=== PATIENT | female | born 1950 | race Caucasian/White ===

== ENCOUNTER 2017-12-18 08:01 | Observation (INO) | payer MEDICARE, OTHER ==
[~2017-12-18] VITALS: Ht 165.1 cm; Wt 74.8 kg
[2017-12-18] VITALS (10 sets, daily range): BP systolic 124–149; BP diastolic 7–82
[~2017-12-18 08:01] MED LIST: EZET10TA5 PO; HYDR-3583 PO
[2017-12-18] MEDS ORDERED: ASPIRIN 81 MG CHEW (CHILDREN'S ASA) ONE (08:11)
[2017-12-18] MEDS ORDERED: NITROGLYCERIN 0.4 MG SL TABS BTL 25'S SL ONE (08:11)
[2017-12-18] MEDS ORDERED: NITROGLYCERIN 0.4 MG SL TABS BTL 25'S SL PRN ×2 (08:15→12:45)
[2017-12-18] MEDS ORDERED: ASPIRIN 81 MG CHEW (CHILDREN'S ASA) PO ONE (08:15)
--- NOTE | 2017-12-18 08:18 | ED Chest Pain ---
General Chief Complaint: Chest Pain Stated Complaint: CP,ARM PAIN, HAND NUMB Source: patient Exam Limitations: no limitations History of Present Illness Date Seen by Provider: Dec 18, 2017 Time Seen by Provider: 08:00 Initial Comments Patient presents to the ER by private conveyance with a chief complaint that she 's been having some right-sided chest pain and shoulder pain that she describes as sharp, intermittent and starting in her anterior right shoulder and radiating to the back of her shoulder running up her neck and right ear as well as down her shoulder arm all the way to her hand. This is been going on for the past several days but only lasts for less than an hour. She has not seen anybody for it yet. This morning she took 2 Tylenol about 2 AM but that did not help much with it. She began to experience numbness in her right hand and that really got her worried. She has no shortness of breath, nausea, chills, sweats or history of heart disease. She has no thyroid problems and she just recently started some medicine for her blood pressure. She has not had a coronary risk stratification workup yet. No history of smoking tobacco. She drinks wine a couple times a week. Allergies and Home Medications Allergies Coded Allergies: NKANo Known Allergies (Verified Allergy, Unknown, 04/13/06) Home Medications Atorvastatin Calcium 40 Mg Tablet, 40 MG PO DAILY, (Reported) Ezetimibe 10 Mg Tablet, 10 MG PO HS, (Reported) Hydrocodone Bit/Acetaminophen 1 Tab Tab, 1-2 EA PO Q4HR PRN, (Reported) Lisinopril/Hydrochlorothiazide 1 Each Tablet, 1 EACH PO DAILY, (Reported) Review of Systems Constitutional: No chills, No diaphoresis EENTM: No Blurred Vision, No Double Vision Respiratory: Denies Cough, Denies Shortness of Air Cardiovascular: See HPI, Chest Pain, Denies Irregular Heart Rate, Denies Lightheadedness, Denies Palpitations, Denies Syncope Gastrointestinal: Denies Abdomen Distended, Denies Abdominal Pain, Denies Constipated, Denies Diarrhea, Denies Nausea, Denies Vomiting Genitourinary: Denies Burning, Denies Discharge Musculoskeletal: No back pain, No joint pain Skin: No pruritus, No rash Psychiatric/Neurological: Denies Headache, Numbness, Paresthesia Past Pznccsc-Bmpndc-Vpzbqz Hx Patient Social History Alcohol Use: Occasionally Uses Alcohol Beverage of Choice: Wine (a few times a week) Recreational Drug Use: No Smoking Status: Never a Smoker Recent Foreign Travel: No Contact w/Someone Who Travel: No Reproductive System Hx Reproductive Disorders: No Physical Exam Vital Signs Vital Signs - First Documented 12/18/17 12/18/17 08:03 08:06 Temp 96.0 Pulse 71 Resp 20 B/P (MAP) 149/77 (101) Pulse Ox 100 O2 Delivery Nasal Cannula O2 Flow Rate 2.00 Capillary Refill : General Appearance: No Apparent Distress, WD/WN, Anxious HEENT: PERRL/EOMI, TMs Normal, Normal ENT Inspection, Pharynx Normal Neck: Full Range of Motion, Normal Inspection, Supple, Tender Lateral (right side about C2-C3 palpation re-creates the sharp pain into her shoulder and right arm as well as the paresthesias), No Thyromegaly Respiratory: Chest Non Tender, Lungs Clear, Normal Breath Sounds, No Accessory Muscle Use, No Respiratory Distress Cardiovascular: Regular Rate, Rhythm, No Edema, No Gallop, No JVD, No Murmur, Normal Peripheral Pulses Gastrointestinal: Normal Bowel Sounds, No Organomegaly, Non Tender, Soft Extremity: Normal Capillary Refill, Normal Inspection, No Pedal Edema, Other ( tenderness to palpation over her ulnar nerve that re-create some of the presenting pain radiating back up in her arm and shoulder as well as down her hand.) Neurologic/Psychiatric: Alert, Oriented x3, No Motor/Sensory Deficits Skin: Normal Color, Warm/Dry Progress/Results/Core Measures Results/Orders Lab Results Laboratory Tests Test 12/18/17 08:10 12/18/17 10:07 Range/Units White Blood Count 7.3 4.3-11.0 10^3/uL Red Blood Count 4.86 4.35-5.85 10^6/uL Hemoglobin 14.3 11.5-16.0 G/DL Hematocrit 42 35-52 % Mean Corpuscular Volume 87 80-99 FL Mean Corpuscular Hemoglobin 29 25-34 PG Mean Corpuscular Hemoglobin Concent 34 32-36 G/DL Red Cell Distribution Width 13.2 10.0-14.5 % Platelet Count 284 130-400 10^3/uL Mean Platelet Volume 10.5 H 7.4-10.4 FL Neutrophils (%) (Auto) 52 42-75 % Lymphocytes (%) (Auto) 37 12-44 % Monocytes (%) (Auto) 9 0-12 % Eosinophils (%) (Auto) 2 0-10 % Basophils (%) (Auto) 0 0-10 % Neutrophils # (Auto) 3.7 1.8-7.8 X 10^3 Lymphocytes # (Auto) 2.7 1.0-4.0 X 10^3 Monocytes # (Auto) 0.7 0.0-1.0 X 10^3 Eosinophils # (Auto) 0.2 0.0-0.3 10^3/uL Basophils # (Auto) 0.0 0.0-0.1 10^3/uL Prothrombin Time 12.5 12.2-14.7 SEC INR Comment 0.9 0.8-1.4 Activated Partial Thromboplast Time 28 24-35 SEC Sodium Level 141 135-145 MMOL/L Potassium Level 3.7 3.6-5.0 MMOL/L Chloride Level 105 98-107 MMOL/L Carbon Dioxide Level 23 21-32 MMOL/L Anion Gap 13 5-14 MMOL/L Blood Urea Nitrogen 26 H 7-18 MG/DL Creatinine 0.80 0.60-1.30 MG/DL Estimat Glomerular Filtration Rate > 60 BUN/Creatinine Ratio 33 Glucose Level 101 70-105 MG/DL Calcium Level 9.6 8.5-10.1 MG/DL Magnesium Level 2.2 1.8-2.4 MG/DL Total Bilirubin 0.7 0.1-1.0 MG/DL Aspartate Amino Transf (AST/SGOT) 19 5-34 U/L Alanine Aminotransferase (ALT/SGPT) 24 0-55 U/L Alkaline Phosphatase 82 40-136 U/L Myoglobin 45.5 10.0-92.0 NG/ML Troponin I < 0.30 < 0.30 <0.30 NG/ML Total Protein 7.6 6.4-8.2 GM/DL Albumin 4.2 3.2-4.5 GM/DL My Orders Orders - TOM SEVILLA Cbc With Automated Diff (12/18/17 08:13) Magnesium (12/18/17 08:13) Chest 1 View, Ap/Pa Only (12/18/17 08:13) Ekg Tracing (12/18/17 08:13) Cardiac Profile 1 (12/18/17 08:13) Comprehensive Metabolic Panel (12/18/17 08:13) Myoglobin Serum (12/18/17 08:13) Protime With Inr (12/18/17 08:13) Partial Thromboplastin Time (12/18/17 08:13) O2 (12/18/17 08:13) Monitor-Rhythm Ecg Trace Only (12/18/17 08:13) Lipid Panel (12/19/17 06:00) Aspirin Chewable Tablet (Baby Aspirin Ch (12/18/17 08:15) Nitroglycerin 0.4 Mg Btl 25's (Nitrostat (12/18/17 08:15) Saline Lock/Iv-Start (12/18/17 08:13) Nitroglycerin 0.4 Mg Btl 25's (Nitrostat (12/18/17 08:11) Aspirin Chewable Tablet (Baby Aspirin Ch (12/18/17 08:11) Morphine Injection (Morphine Injection (12/18/17 08:30) Ondansetron Injection (Zofran Injectio (12/18/17 09:00) Ondansetron Injection (Zofran Injectio (12/18/17 08:47) Ondansetron Injection (Zofran Injectio (12/18/17 09:45) Lactated Ringers (Lr 1000 Ml Iv Solution (12/18/17 09:45) Ekg Tracing (12/18/17 10:00) Troponin I (12/18/17 10:01) Promethazine Injection (Phenergan Injec (12/18/17 10:45) Promethazine Injection (Phenergan Injec (12/18/17 10:37) Medications Given in ED Current Medications Medications Dose Ordered Sig/Cyril Route Start Time Stop Time Status Last Admin Dose Admin Aspirin 324 mg ONCE ONCE PO 12/18/17 08:15 12/18/17 08:16 DC 12/18/17 08:16 324 MG Morphine Sulfate 4 mg ONCE ONCE IVP 12/18/17 08:30 12/18/17 08:32 DC 12/18/17 08:40 4 MG Nitroglycerin 0.4 mg UD PRN SL 12/18/17 08:15 12/18/17 08:17 0.4 MG Ondansetron HCl 4 mg ONCE ONCE IVP 12/18/17 09:00 12/18/17 09:01 DC 12/18/17 08:53 4 MG Ondansetron HCl 4 mg ONCE ONCE IVP 12/18/17 09:45 12/18/17 09:46 DC 12/18/17 10:12 4 MG Promethazine HCl 25 mg ONCE ONCE IVP 12/18/17 10:45 12/18/17 10:46 DC 12/18/17 10:46 25 MG Vital Signs/I&O Vital Sign - Last 12Hours 12/18/17 12/18/17 12/18/17 12/18/17 08:03 08:05 08:06 08:40 Temp 96.0 96.0 Pulse 71 Resp 20 B/P (MAP) 149/77 (101) Pulse Ox 100 100 O2 Delivery Nasal Cannula Nasal Cannula Nasal Cannula O2 Flow Rate 2.00 2.00 2.00 Progress Note : Time: 08:27 Progress Note Pain appears to be a radiculopathy however it would be a short sighted to not rule out an acute coronary origin. Initial EKG is unremarkable. If she is not responding to nitroglycerin we may try morphine. If we can rule out acute coronary issues then she may be amenable to NSAIDs or steroids. However it would likely benefit her to do a cardiac risk stratification outpatient before she launches into heavy course of NSAIDs. The morphine may also benefit her in terms anxiolysis. ECG Initial ECG Impression Date: Dec 18, 2017 Initial ECG Impression Time: 08:05 Initial ECG Rate: 83 Initial ECG Rhythm: Normal Sinus Initial ECG Intervals: Normal Initial ECG Impression: Normal, Nonspecific Changes Initial ECG Comparisson: No Previous ECG Available Comment No significant T-wave elevation or depression. EKG : EKG Time: 10:03 Rate: 60 Rhythm: Normal Sinus Intervals: Normal ECG Comparisson: Unchanged ECG Impression: Nonspecific Changes Comment Subtle anterior lateral flattening and half box depression of the ST segment. Discussed with cardiology. Diagnostic Imaging Diagonstic Imaging: Xray Plain Films/CT/US/NM/MRI: chest (1v) Comments [facility] [place], [place] NAME: BASIL LAURA [facility] REC#: [id number] PT STATUS: REG ER : 1950 PHYSICIAN: TOM SEVILLA MD ADMIT DATE: 12/18/17/ER Draft Date of Exam:12/18/17 CHEST 1 VIEW, AP/PA ONLY Clinical indication: Patient with chest pain, arm pain, hand numbness. Exam: Portable chest x-ray upright view. Comparison: None. Findings: There is a benign appearing small calcification overlying the periphery of the left midlung field which may be pleural-based, extrathoracic, or representing a calcified granuloma. Otherwise, lungs are clear. There is no pleural effusion or pneumothorax. Pulmonary vasculature and cardiac silhouettes within normal limits. There are small spurs involving the thoracic spine. There is mild left curvature of the lumbar spine. There are multiple surgical clips overlying the left axillary region. Impression: There is no radiographic evidence of acute cardiopulmonary process. Dictated on workstation # [id number] Dict: 12/18/17 0837 Trans: 12/18/17 0843 EARNESTINE [id number] Interpreted by: CHACHA ROUSSEAU MD Electronically signed by: Reviewed: Reviewed by Me Consults Consults : Consulting Physician: Shanta ESPAÑA MD Consults Notes Discussed the case lab imaging EKG findings and concern for probable radiculopathy. He says he will come to the ER since he's in the Hospital see the patient and if he agrees with plan he'll get her set up for outpatient follow-up. After Dr. España saw the patient and EKG he feels there is some subtle anterior lateral findings the flat didn't lead 1 although they are less than a box in amplitude. He would like to offer the patient to do an observation stay and stress test today versus outpatient follow-up the next day or 2 stress test. The patient has preferred to do the stress test today and if the repeat EKG and troponin are normal then he would like the primary care physician to admit the patient to care for the possible radiculopathy and he will do the stress test this afternoon at 1. Departure Communication (Admissions) Time/Spoke to Admitting Phy: 11:02 Communication Discussed the case lab imaging x-ray EKG and findings with Dr. Ramírez. Discussed the likelihood of a cervical radiculopathy given the clinical history and exam. We discussed that the plan was to do a stress test due to the subtle EKG findings and possible discharge later today or tomorrow morning. Impression Impression: Primary Impression: Chest pain Qualified Codes: R07.9 - Chest pain, unspecified Additional Impression: Cervical radiculopathy, acute Disposition: ADMITTED INPATIENT Condition: Stable Admissions Decision to Admit Reason: Admit from ER (General) Decision to Admit/Date: Dec 18, 2017 Time/Decision to Admit Time: 11:02 Departure-Patient Inst. Referrals: LAVELLE JUSTIN MD (PCP/Family) Primary Care Physician Copy Copies To 1: Shanta ESPAÑA MD; LAVELLE JUSTIN MD, TITUS J Dec 18, 2017 08:18
[2017-12-18 08:19] LABS: BASOPHILS % (AUTO) 0 % (0-10); EOSINOPHILS # (AUTO) 0.2 10^3/uL (0.0-0.3); EOSINOPHILS % (AUTO) 2 % (0-10); HEMATOCRIT 42 % (35-52); HEMOGLOBIN 14.3 G/DL (11.5-16.0); LYMPHOCYTES # (AUTO) 2.7 X 10^3 (1.0-4.0); LYMPHOCYTES % (AUTO) 37 % (12-44); MEAN CORPUSCULAR HEMOGLOBIN 29 PG (25-34); MEAN CORPUSCULAR HGB CONC 34 G/DL (32-36); MEAN CORPUSCULAR VOLUME 87 FL (80-99); MEAN PLATELET VOLUME 10.5 FL (7.4-10.4); MONOCYTES # (AUTO) 0.7 X 10^3 (0.0-1.0); MONOCYTES % (AUTO) 9 % (0-12); NEUTROPHILS # (AUTO) 3.7 X 10^3 (1.8-7.8); NEUTROPHILS % (AUTO) 52 % (42-75); PLATELET COUNT 284 10^3/uL (130-400); RED BLOOD COUNT 4.86 10^6/uL (4.35-5.85); RED CELL DISTRIBUTION WIDTH 13.2 % (10.0-14.5); WHITE BLOOD COUNT 7.3 10^3/uL (4.3-11.0)
[2017-12-18] MEDS ORDERED: morphine INJ 10 MG/ML 1ML (SYR OR VIAL) IVP ONE (08:30)
[2017-12-18 08:31] LABS: INR 0.9 (0.8-1.4); PROTHROMBIN TIME PATIENT 12.5 SEC (12.2-14.7)
[2017-12-18 08:42] LABS: ALANINE AMINOTRANSFERASE 24 U/L (0-55); ALBUMIN 4.2 GM/DL (3.2-4.5); ALKALINE PHOSPHATASE 82 U/L (40-136); BILIRUBIN,TOTAL 0.7 MG/DL (0.1-1.0); BUN/CREATININE RATIO 33; CALCIUM 9.6 MG/DL (8.5-10.1); CARBON DIOXIDE 23 MMOL/L (21-32); CHLORIDE 105 MMOL/L (98-107); GFR ESTIMATED > 60; GLUCOSE 101 MG/DL (70-105); MAGNESIUM 2.2 MG/DL (1.8-2.4); POTASSIUM 3.7 MMOL/L (3.6-5.0); SODIUM 141 MMOL/L (135-145); TOTAL PROTEIN 7.6 GM/DL (6.4-8.2)
--- NOTE | 2017-12-18 08:43 | Diagnostic Imaging Report ---
Clinical indication: Patient with chest pain, arm pain, hand numbness. Exam: Portable chest x-ray upright view. Comparison: None. Findings: There is a benign appearing small calcification overlying the periphery of the left midlung field which may be pleural-based, extrathoracic, or representing a calcified granuloma. Otherwise, lungs are clear. There is no pleural effusion or pneumothorax. Pulmonary vasculature and cardiac silhouettes within normal limits. There are small spurs involving the thoracic spine. There is mild left curvature of the lumbar spine. There are multiple surgical clips overlying the left axillary region. Impression: There is no radiographic evidence of acute cardiopulmonary process. Dictated by: Dictated on workstation # [id number]
[2017-12-18] MEDS ORDERED: LISI1TAB6 PO (08:44)
[2017-12-18] MEDS ORDERED: ATOR40TA70 PO (08:44)
[2017-12-18] MEDS ORDERED: ONDANSETRON 4 MG/2 ML (SDV) Z0FRAN ONE (08:47)
[2017-12-18 08:48] LABS: MYOGLOBIN SERUM 45.5 NG/ML (10.0-92.0)
[2017-12-18] MEDS ORDERED: ONDANSETRON 4 MG/2 ML (SDV) Z0FRAN IVP ONE ×2 (09:00→09:45)
[2017-12-18] MEDS: LACTATED RINGERS 1,000 ML IV SCH ×3 (10:09→12:20)
[2017-12-18] MEDS ORDERED: PROMETHAZINE INJ 25 MG/ML (PHENERGAN) AMP ONE (10:37)
[2017-12-18] MEDS ORDERED: PROMETHAZINE INJ 25 MG/ML (PHENERGAN) AMP IVP ONE (10:45)
[2017-12-18] MEDS ORDERED: fentaNYL INJECTION 100 MCG/2 ML AMP IV PRN (12:45)
[2017-12-18] MEDS ORDERED: ONDANSETRON 4 MG/2 ML (SDV) Z0FRAN IV PRN (12:45)
[2017-12-18] MEDS ORDERED: CATHETER FLUSH 10 ML SYR IV PRN (12:45)
[2017-12-18] MEDS: 1/2 NS W/KCL 20 MEQ/L 1,000 ML IV SCH ×2 (12:47→17:05)
[2017-12-18] MEDS ORDERED: REGADENOSON 0.4 MG/5 ML SYR (LEXISCAN) IV ONE ×2 (13:21→13:45)
--- NOTE | 2017-12-18 13:57 | Consultation-Cardiology ---
HPI-Cardiology Cardiology Consultation: Date of Consultation 12/18/17 Date of Admission Attending Physician Ramsey Ramírez MD Admitting Physician [place] Phelps MD Consulting Physician Shanta ESPAÑA MD HPI: Time Seen by Provider: 10:00 Chief Complaint: Chest pain This is a 67-year-old female with history of hypertension and hyperlipidemia. She also has history of left breast cancer with radiation therapy to the chest 15 years ago. 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 Severe pain which improved with morphine. No associated shortness of breath, palpitation, near syncope or syncope. Quality is sharp. Review of Systems-Cardiology Review of Systems Constitutional: No As described under HPI, No no symptoms reported, No chills, No fever, No lightheadedness, No malaise, No tiredness, No weight loss, No weight gain, No other Eyes: No As described under HPI, No no symptoms reported, No blindness, No blurred vision, No contact lenses, No drainage, No decreased acuity, No foreign body sensation, No glasses, No inflammation, No pain, No photophobia, No previous injury, No shadows, No tunnel vision, No other, No vision change Ears/Nose/Throat: No As described under HPI, No no symptoms reported, No chronic hearing loss, No ear discharge, No ear pain, No nasal drainage, No ulcerations Respiratory: No no symptoms reported, No As described under HPI, No cough, No orthopnea, No shortness of breath, No SOB with excertion, No SOB at rest, No stridor, No wheezing, No other Cardiovascular: chest pain Gastrointestinal: No no symptoms reported, No As described under HPI, No abdomen distended, No abdominal pain, No blood streaked bowels, No constipation , No diarrhea, No difficulty swallowing, No nausea, No poor appetite, No poor fluid intake, No rectal bleeding, No vomiting, No other, No nausea/vomiting/ diarrhea, No stool coloration changes Genitourinary: No no symptoms reported, No As described under HPI, No burning, No dysuria, No discharge, No frequency, No flank pain, No hematuria, No incontinence, No pain, No urgency, No other, No urine frequency changes, No urine coloration changes Musculoskeletal: neck pain Skin: No no symptoms reported, No As described under HPI, No change in color, No change in hair/nails, No dryness, No lesions, No lumps, No rash, No other, No skin related problems, No ulcerations, No rash on exposed areas, No ulcerations on exposed areas Psychiatric/Neurological: numbness, No no symptoms reported, No As described under HPI, No anxiety, No depression, No emotional problems, No headache, No pre -existing deficit, No seizure, No tingling, No tremors, No weakness, No other, No focal weakness, No syncope Hematologic: As described under HPI YZC-[id number]-Sevpfl Hx Patient Social History Alcohol Use: Occasionally Uses Recreational Drug Use: No Smoking Status: Never a Smoker Recent Foreign Travel: No Recent Infectious Disease Expo: No Physical Abuse Screen: No Sexual Abuse: No Immunizations Up To Date Date of Pneumonia Vaccine: Dec 06, 2016 Date of Influenza Vaccine: Aug 08, 2017 Past Medical History PMH As described under Assessment. Allergies and Home Medications Allergies Coded Allergies: NKANo Known Allergies (Verified Allergy, Unknown, 04/13/06) Home Medications Atorvastatin Calcium 40 Mg Tablet, 40 MG PO DAILY, (Reported) Ezetimibe 10 Mg Tablet, 10 MG PO HS, (Reported) Hydrocodone Bit/Acetaminophen 1 Tab Tab, 1-2 EA PO Q4HR PRN, (Reported) Lisinopril/Hydrochlorothiazide 1 Each Tablet, 1 EACH PO DAILY, (Reported) Physical Exam-Cardiology Physical Exam Vital Signs/I&O Vital Sign - Last 12Hours 12/18/17 12/18/17 12/18/17 12/18/17 08:03 08:05 08:06 08:40 Temp 96.0 96.0 Pulse 71 Resp 20 B/P (MAP) 149/77 (101) Pulse Ox 100 100 O2 Delivery Nasal Cannula Nasal Cannula Nasal Cannula O2 Flow Rate 2.00 2.00 2.00 12/18/17 12/18/17 12/18/17 11:35 11:40 12:30 Temp 96.6 96.0 Pulse 62 64 65 Resp 20 16 B/P (MAP) 149/70 (96) Pulse Ox 99 99 O2 Delivery Room Air Room Air Capillary Refill : Less Than 3 Seconds Constitutional: appears stated age, AAO x 3, No apparent distress, No PERRL, well-developed, No well-nourished, No other HEENT: PERRL, No normal ENT inspection, No TMs normal, No pharynx normal, No scleral icterus (R), No scleral icterus (L), No pale conjunctivae (R), No pale conjunctivae (L), No photophobia, No TM abnormal (R), No TM abnormal (L), No pharyngeal erythema, No tonsillar exudate, No other, No discharge, No EOMI, hearing is well preserved, No hard of hearing, oral hygience is good, No ulceration, No xanthelasmas are seen Neck: No non-tender, No full range of motion, No supple, No normal inspection, No carotid bruit, No limited range of motion, No lymphadenopathy (R), No lymphadenopathy (L), No tender lateral, No tender midline, No thyromegaly, No other, carotid pulses are 2 + bilaterally, No with good upstrokes Respiratory: No accessory muscle use, No respiratory distress, No chest tender , No chest expansion is symmetric, chest is bilaterally symmetric, lungs clear to percussion, lungs clear to auscultation, No crackles, No rhonchi, No rales, No stridor, No wheezing, No pleural rub, No other Cardiovascular: regular rate-rhythm, No irregularly irregular, No extra beats, No parasternal heave is noted, No JVD, No edema, No bradycardia, No tachycardia , No point of maximal impulse, No cardiac thrills are palpable, S1 and S2, No gallop/S3, No gallop/S4, No diastolic murmur, No systolic murmur, No friction rub, No click, No other Gastrointestinal: No tender, No soft, No round, No distended, No pulsatile mass , No organomegaly, No guarding, No rebound, No tenderness, No hernia, No mass, No audible bowel sounds, No abnormal bowel sounds, No abdominal bruits, No spleenomegaly, No other Rectal: deferred Extremities: No normal range of motion, No non-tender, No normal inspection, No pedal edema, No calf tenderness, No normal capillary refill, No pelvis stable , No calf tenderness, No inflammation, No pedal edema, No slow capillary refill , No swelling, No other, No abrasion, No clubbing, No cyanosis, No ecchymosis, No laceration, No no lower extremity edema bilateral, No significant edema, No tenderness, No wound Neurologic/Psychiatric: No bakery chef II-XII nml as tested, no motor/sensory deficits , alert, normal mood/affect, oriented x 3, No abnormal cerebellar tests, No abnormal bakery chef II-XII, No abnormal gait, No aphasia, No EOM palsy, No facial droop , No motor weakness, No sensory deficit, No depressed affect, No disoriented x 3 , No other, No grossly intact, power is 5/5 both on sides Skin: No normal color, No warm/dry, No cyanosis, No cool, No diaphoresis, No damp, No ecchymosis, No jaundice, No mottled, No pallor, No rash, No tattoos/ piercings, No ulcerations, No rash on exposed areas, No ulcerations on exposed areas, No other Data Review Labs Laboratory Tests 12/18/17 08:10: White Blood Count 7.3, Red Blood Count 4.86, Hemoglobin 14.3, Hematocrit 42, Mean Corpuscular Volume 87, Mean Corpuscular Hemoglobin 29, Mean Corpuscular Hemoglobin Concent 34, Red Cell Distribution Width 13.2, Platelet Count 284, Mean Platelet Volume 10.5H, Neutrophils (%) (Auto) 52, Lymphocytes (%) (Auto) 37 , Monocytes (%) (Auto) 9, Eosinophils (%) (Auto) 2, Basophils (%) (Auto) 0, Neutrophils # (Auto) 3.7, Lymphocytes # (Auto) 2.7, Monocytes # (Auto) 0.7, Eosinophils # (Auto) 0.2, Basophils # (Auto) 0.0, Prothrombin Time 12.5, INR Comment 0.9, Activated Partial Thromboplast Time 28, Sodium Level 141, Potassium Level 3.7, Chloride Level 105, Carbon Dioxide Level 23, Anion Gap 13, Blood Urea Nitrogen 26H, Creatinine 0.80, Estimat Glomerular Filtration Rate > 60, BUN/Creatinine Ratio 33, Glucose Level 101, Calcium Level 9.6, Magnesium Level 2.2, Total Bilirubin 0.7, Aspartate Amino Transf (AST/SGOT) 19, Alanine Aminotransferase (ALT/SGPT) 24, Alkaline Phosphatase 82, Myoglobin 45.5, Troponin I < 0.30, Total Protein 7.6, Albumin 4.2 12/18/17 10:07: Troponin I < 0.30 ECG Impression ECG Initial ECG Rhythm: Normal Sinus Comment Horizontal ST depressions noted in the anterior/lateral leads. A/P-Cardiology Assessment/Admission Diagnosis Chest pain, Hypertension, hyperlipidemia, History of breast cancer, History of chest radiation. Shoulder pain/neck pain Plan Chest pain: Acute coronary syndrome ruled out with serial negative troponin. EKG shows horizontal ST depressions in the anterior lateral leads. Patient has risk factors for CAD including hypertension, hyperlipidemia and radiation therapy to the chest. I discussed at length with the patient and recommended evaluation with a pharmacological nuclear stress test and echocardiogram. Hypertension: Continue losartan and hydrochlorothiazide. Well controlled. Hyperlipidemia: Continue atorvastatin and ezetimibe. History of left breast cancer and radiation therapy to the chest: No active issues however radiation therapy to the chest is a risk factor for coronary vascular disease. Shoulder pain/neck pain could be secondary to radiculopathy. Thank you for your consultation. Please call me if you have any questions. Felicia España MD, FACP, FACC, FSCAI, FHRS, CCDS Interventional Cardiology Cardiac Electrophysiology Vascular Medicine and Endovascular Interventions Clinical Quality Measures AMI/AHF: ASA po Prior to arrival: No DVT/VTE Risk/Contraindication: Risk Factor Score Per Nursin RFS Level Per Nursing on Admit: 2=Moderate Shanta ESPAÑA MD Dec 18, 2017 13:56
[2017-12-18] MEDS ORDERED: HEParin (CATH LAB) 2,000 ML IV ONE (15:08)
[2017-12-18] MEDS ORDERED: LIDOCAINE 1% INJ 50 ML (XYLOCAINE) VIAL ONE (15:08)
[2017-12-18] MEDS ORDERED: NS IV 1000 ML 1,000 ML ONE (15:08)
--- NOTE | 2017-12-18 15:14 | History & Physical-Hospitalist ---
HPI History of Present Illness: HPI/Chief Complaint The patient is a 67-year-old white female known to me for some years now. She had presented to the emergency room with a history of a right-sided chest pain which had been off and on for several weeks now. It seemed to both radiate down the right arm with some numbness and tingling noted to the hand but also up the neck and towards the ear which was more of the pure pain level. Workup in the emergency room ensued. She was seen by Dr. España there and he found that there were some subtle abnormalities in the ST segments in the anterior and lateral leads And recommended that she stay for a nuclear stress test later today. This was completed and these abnormalities were clear and more prominent than on the resting findings. Source: patient, family Exam Limitations: no limitations Date Seen 12/18/17 Time Seen by Provider: 15:10 Attending Physician Ramsey Alcala MD PCP West Phelps MD Referring Physician Shanta ESPAÑA MD Date of Admission Dec 18, 2017 at 10:50 Home Medications & Allergies Home Medications Reviewed patient Home Medication Reconciliation Form Allergies Allergies Coded Allergies NKANo Known Allergies (Verified Allergy, Unknown, 04/13/06) Past Wdwfiux-Xrechp-Taodgd Hx Patient Social History Alcohol Use: Occasionally Uses Number of Drinks Today: Alcohol Beverage of Choice: Wine Recreational Drug Use: No Smoking Status: Never a Smoker Physical Abuse Screen: No Sexual Abuse: No Recent Foreign Travel: No Contact w/other who traveled: No Recent Hopitalizations: No Recent Infectious Disease Expo: No Immunizations Up To Date Date of Pneumonia Vaccine: Dec 06, 2016 Date of Influenza Vaccine: Aug 08, 2017 Seasonal Allergies Seasonal Allergies: No Surgeries Yes Section, Lumpectomy Respiratory No Cardiovascular Yes High Cholesterol, Hypertension Neurological No Reproductive System Hx Reproductive Disorders: No Genitourinary No Gastrointestinal Yes (COLON CA) Musculoskeletal No Endocrine History of Endocrine Disorders: No HEENT History of HEENT Disorders: No Cancer Yes Colon Did You Recieve Any Treatments: No Type of Treatment: Surgical Intervention Psychosocial History of Psychiatric Problem: No Integumentary History of Skin or Integumenta: No Blood Transfusions History of Blood Disorders: No Physical Exam Physical Exam Vital Signs Vital Signs - First Documented 12/18/17 12/18/17 08:03 08:06 Temp 96.0 Pulse 71 Resp 20 B/P (MAP) 149/77 (101) Pulse Ox 100 O2 Delivery Nasal Cannula O2 Flow Rate 2.00 Capillary Refill : Less Than 3 Seconds Results Results/Procedures Lab Laboratory Tests 12/18/17 08:10 Clinical Quality Measures AMI/AHF: ASA po Prior to arrival: No DVT/VTE Risk/Contraindication: Risk Factor Score Per Nursin RFS Level Per Nursing on Admit: 2=Moderate RAMSEY ALCALA MD Dec 18, 2017 15:14
--- NOTE | 2017-12-18 15:16 | Cardiology Stress Test Report ---
Stress Test Report Type of NM Stress Test: Test Type: LEXISCAN 0.4MG/5ML Date of Procedure/Referring: Date of Procedure: Dec 18, 2017 PCP Ramsey Ramírez MD Admitting Physician West Phelps MD Indications: Prolonged chest pain, hypertension, hyperlipidemia, radiation therapy to the chest, ST depressions on EKG. Baseline Heart Rate: 71 Baseline Blood Pressure: Blood Pressure Systolic: 146 Blood Pressure Diastolic: 72 Baseline EKG: Baseline EKG: sinus rhythm. Summary: The patient was brought to the stress lab after informed consent was taken. Lexiscan stress test was done according to the protocol. 0.4 mg of IV Lexiscan was given. Low-grade exercise was performed. Baseline EKG showed sinus rhythm at 71 BPM and blood pressure 146/72 mmHg. Final heart rate 121 BPM and blood pressure of 188/69 mmHg. Patient had mild chest pain. Worsening ST depression during stress test. No arrhythmias were noted. 10.91 mCi of Myoview was given for rest imaging and 29.8 mCi of Myoview was given for stress imaging. Transient ischemic dilatation score 1.19. Ejection fraction 76 percent. There is evidence of mild to moderate intermediate size jayna-apical reversible defect. Conclusion: Abnormal pharmacological nuclear stress test. Abnormal transient ischemic dilatation score. Evidence of jayna-apical ischemia on myocardial perfusion imaging, coronary angiography is recommended. Shanta GORDON MD Dec 18, 2017 15:16
[2017-12-18] MEDS ORDERED: MIDAZOLAM 5 MG/5 ML (VERSED) VIAL ONE (15:19)
[2017-12-18] MEDS ORDERED: fentaNYL INJECTION 100 MCG/2 ML AMP ONE (15:19)
[2017-12-18] MEDS ORDERED: OMG1KC PO (15:26)
--- NOTE | 2017-12-18 15:50 | Cardiac Procedure Note-CS/ASA ---
Pre-Procedure Note Pre-Op Procedure Note H&P Reviewed The H&P was reviewed, patient examined and no changes noted. Date H&P Reviewed: Dec 18, 2017 Time H&P Reviewed: 15:49 Conscious Sedation Pre-Proced Time Reviewed: 15:50 ASA Class: 3 Airway Mallampati Classification: ([place] appropriate class) I. II. III, IV Lungs Heart ASA score ASA 1: a normal healthy patient ASA 2: a patient with a mild systemic disease (mid diabetes, controlled hypertension, obesity ASA 3: a patient with a severe systemic disease that limits activity (angina , COPD, prior Myocardial infarction) ASA 4: a patient with an incapacitating disease that is a constant threat to life (CHF, renal failure) ASA 5: a moribund patient not expected to survive 24 hrs. (ruptured aneurysm) ASA 6: a declared brain patient whose organs are being harvested. For emergent operations, add the letter E after the classification Grade 1 Sedation Plan: Analgesia, Amnesia, Plan communicated to team members, Discussed options with patient/fam, Discussed risks with patient/fam Note The patient is an appropriate candidate to undergo the planned procedure, sedation, and anesthesia. The patient immediately re-assessed prior to indication. Shanta GORDON MD Dec 18, 2017 15:50
[2017-12-18] MEDS ORDERED: NS IV 1000 ML 1,000 ML IV SCH ×2 (16:00→16:16)
--- NOTE | 2017-12-18 16:21 | Coronary Angiography Report ---
Coronary Angiography Report DATE OF PROCEDURE: 12/18/17 INDICATION: prolonged chest pain, ST depression on EKG, abnormal nuclear stress test. PREOPERATIVE DIAGNOSIS: prolonged chest pain, ST depression on EKG, abnormal nuclear stress test. POSTOPERATIVE DIAGNOSIS: patent epicardial coronary arteries. HISTORY: this is a 67-year-old lady with history of hypertension, hyperlipidemia , left breast cancer with radiation therapy to the chest who presents with prolonged episode of chest pain. EKG showed sinus rhythm with ST depressions in anterior lateral leads. Acute coronary syndrome was ruled out with negative serial troponins. Nuclear stress test showed evidence of reversible ischemia in the anterior apical area. Therefore, the patient was scheduled for coronary angiography. PROCEDURES PERFORMED: 1.Coronary angiography. 2.Left heart catheterization. 3. Aortic arch angiogram. 4. Mynx closure of right femoral artery. COMPLICATIONS: None. SPECIMENS: None. ESTIMATED BLOOD LOSS: 10 mL ANESTHESIA: Conscious sedation ANTICOAGULATION: none CONTRAST: 85 mL of Omnipaque. FLUOROSCOPY: 1.9 minutes. FLOUROSCOPY DOSE:163 mgy PROCEDURE DETAILS: The patient is a 67 female and was brought to the labor delivery rn after informed consent was taken. All the risks and complications were explained in detail; this included the risk of bleeding, vascular damage, stroke , NE and even . The patient was draped and prepped in the usual sterile fashion. Kush's test was abnormal therefore access was gained in the right femoral artery with a 6 [place] sheath. Right coronary angiography, left heart catheterization, aortic arch angiogram was done with a JR4 catheter. Left coronary angiography was performed with a JL4 catheter. FINDINGS: 1.Left main: patent. 2.LAD: patent. Transapical vessel. 3.Left circumflex artery: patent. 4.RCA: patent. 5.Left heart catheterization: LV pressure 128/2 mmHg. LVEDP 8 mmHg. Aortic pressure 123/53 mmHg. Normal LV function with no wall motion abnormalities. No gradient across the aortic valve. CONCLUSIONS: patent epicardial coronary arteries. Continue primary prevention measures. Felicia España MD, FACP, FACC, [facility] Interventional Cardiology Shanta ESPAÑA MD Dec 18, 2017 16:21
[2017-12-18] MEDS ORDERED: PATIENT MAY USE OWN MEDS, ALL PO SCH (16:30)
[2017-12-18] MEDS ORDERED: meTOprolol TARTRATE 25 MG (LOPRESSOR) TABLET PO SCH (21:00)
[2017-12-18] MEDS ORDERED: ATORVASTATIN 40 MG (LIPITOR) TABLET PO SCH (21:00)
[2017-12-19] MEDS ORDERED: ASPIRIN E.C. 325 MG (ECOTRIN) TABLET PO SCH (09:00)
[2017-12-19] MEDS ORDERED: lisINopril 10 MG (PRINIVIL) TAB PO SCH (09:00)
--- OUTSIDE RECORDS SUMMARY | 2017-12-20 13:45 | XMS REPORT | Clinical Summary ---
Author Author [facility] Organization [facility] Address Unknown Phone Unavailable Care Team Providers Care Loom Checker Name Role Phone Haim Bourgeois MD Unavailable Rhina Garcia MD Unavailable Suyapa Martinez Unavailable Unavailable West Phelps MD PCP Katy Gorman RN Unavailable Unavailable Source Comments Some departments are not documenting in the electronic medical record. If you do not see the information that you expected, contact Release of Information in the Health Information Management department at [phone] for further assistance in locating additional records.[facility] Allergies No Known Allergies Current Medications Prescription Sig. Disp. Refills Start End Date Status Date ATORVASTATIN CALCIUM Take 40 mg by mouth Active (LIPITOR PO) daily. Active Problems Not on file Social History Tobacco Use Types Packs/Day Years Used Date Never Assessed Sex Assigned at Date Recorded Not on file Last Filed Vital Signs Vital Sign Reading Time Taken Blood Pressure 127/56 10/11/2015 9:32 AM [employer] Pulse 53 10/11/2015 9:32 AM [employer] Temperature 36.6 C (97.9 F) 10/11/2015 9:00 AM [employer] Respiratory Rate - - Oxygen Saturation 100% 10/11/2015 9:32 AM [employer] Inhaled Oxygen - - Concentration Weight 68 kg (150 lb) 10/11/2015 7:42 AM [employer] Height 165.1 cm (5' 5") 10/11/2015 7:42 AM [employer] Body Mass Index 24.96 10/11/2015 7:42 AM [employer] Plan of Treatment Health Maintenance Due Date Last Done Comments HEPATITIS C SCREENING 1950 PHYSICAL (COMPREHENSIVE) 01/08/1955 EXAM PERTUSSIS VACCINE 01/08/1959 TETANUS VACCINE 01/08/1965 BREAST CANCER SCREENING 1988 SHINGLES VACCINE 2008 OSTEOPOROSIS SCREENING 01/08/2013 PREVNAR/PNEUMOVAX (#1) 01/08/2013 INFLUENZA VACCINE 06/05/2017 COLORECTAL CANCER 10/11/2025 10/11/2015, 09/19/2013 SCREENING Results Not on filefrom Last 3 Months
--- OUTSIDE RECORDS SUMMARY | 2017-12-20 13:46 | XMS REPORT | Continuity of Care Document ---
Author Author [facility] Organization [facility] Address Unknown Phone Unavailable Allergies Active Description Code Type Severity Reaction Onset Reported/Identified Relationship to Patient Clinical Status Yes NKANo Known Allergies NKA Miscellaneous Allergy Unknown N/A 04/13/2006 Medications There is no data. Problems Date Dx Coded Attending Type Code Diagnosis Diagnosed By 11/02/2014 LAVELLE JUSTIN MD Ot 611.71 11/02/2014 LAVELLE JUSTIN MD Ot 611.72 11/02/2014 LAVELLE JUSTIN MD Ot V10.3 03/12/2015 LAVELLE JUSTIN MD Ot 611.71 03/12/2015 LAVELLE JUSTIN MD Ot 611.72 03/12/2015 LAVELLE JUSTIN MD Ot V10.3 09/12/2016 LAVELLE JUSTIN MD Ot 611.71 MASTODYNIA 09/12/2016 LAVELLE JUSTIN MD Ot 611.72 LUMP OR MASS IN BREAST 09/12/2016 LAVELLE JUSTIN MD Ot V10.3 HX OF BREAST MALIGNANCY 09/12/2016 LAVELLE JUSTIN MD Ot 611.71 MASTODYNIA 09/12/2016 LAVELLE JUSTIN MD Ot 611.72 LUMP OR MASS IN BREAST 09/12/2016 LAVELLE JUSTIN MD Ot V10.3 HX OF BREAST MALIGNANCY 09/12/2016 LAVELLE JUSTIN MD Ot Z12.31 ENCNTR SCREEN MAMMOGRAM FOR MALIGNANT NE 09/13/2016 LAVELLE JUSTIN MD Ot Z12.31 ENCNTR SCREEN MAMMOGRAM FOR MALIGNANT NE 09/15/2016 LAVELLE JUSTIN MD Ot Z12.31 ENCNTR SCREEN MAMMOGRAM FOR MALIGNANT NE 10/04/2016 LAVELLE JUSTIN MD, Ot Z12.31 ENCNTR SCREEN MAMMOGRAM FOR MALIGNANT NE Procedures There is no data. Results There is no data. Encounters ACCT No. Visit Date/Time Discharge Status Pt. Type Provider Facility Loc./Unit Complaint [id number] 09/12/2016 12:58:00 09/12/2016 23:59:59 CLS Outpatient LAVELLE JUSTIN MD [facility] RAD SCREENING [id number] 09/09/2014 11:17:00 09/09/2014 23:59:59 CLS Outpatient LAVELLE JUSTIN MD [facility] RAD SCREENING,HX OF BIOPSY [id number] 09/12/2016 12:58:00 Document Registration
== END 2017-12-18 20:55 | disposition home or self-care (01) ==
LOC: EDUNIT# 08:01 → ER 08:03 → 4TH 10:50
PROVIDERS: ADMIT Internal Medicine; ATTEND Internal Medicine
DX: R07.9 Chest pain, unspecified (principal); I10 Essential (primary) hypertension; E78.5 Hyperlipidemia, unspecified; M54.12 Radiculopathy, cervical region; Z85.3 Personal history of malignant neoplasm of breast; Z92.3 Personal history of irradiation
CPT/HCPCS: 36221; 36415; 71045; 78452; 80053; 83735; 83874; 84484; 85025; 85610; 85730; 93005; 93017; 93041; 93306; 93458; 96361; 96374; 96375; 96376

== ENCOUNTER → 2018-01-01 | Outpatient (CLI) | payer MEDICARE, OTHER ==
[~2018-01-01] MED LIST changes: +ATOR40TA70 PO; +LISI1TAB6 PO; +OMG1KC PO
--- NOTE | 2018-01-01 15:01 | Diagnostic Imaging Report ---
PROCEDURE: MR imaging cervical spine without contrast. TECHNIQUE: Multiplanar, multisequence MR imaging of the cervical spine was performed without contrast. INDICATION: Neck pain that radiates into bilateral shoulders. No prior studies are available for comparison. FINDINGS: Curvature of the cervical spine is normal. 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 There is a smaller hemangiolipoma within the T3 vertebral body posteriorly. No other geographic marrow lesions are identified. There is generalized desiccation of the discs throughout the cervical spine compatible with degenerative disc disease. Mild variable disc space narrowing is also present. There is normal homogeneous signal intensity and normal morphology to the cervical spinal cord. C2-C3: No central canal or neuroforaminal stenosis is identified. C3-C4: Minimal endplate osteophytes are present but no central canal or neuroforaminal stenosis is identified. C4-C5: There is right-sided uncovertebral joint degenerative change resulting in moderate right neuroforaminal narrowing. The left neuroforamen is normal. Central canal is normal. C5-C6: Broad-based disc/osteophyte complex is present which flattens the ventral thecal sac. However, no resultant central canal stenosis is identified. Uncovertebral joint degenerative change does result in moderate neuroforaminal stenosis bilaterally. C6-C7: There is mild broad-based disc/osteophyte complex flattening the ventral thecal sac. Uncovertebral joint degenerative change on the left does result in moderate neuroforaminal narrowing. The right neuroforamen is patent. Central canal is patent. C7-T1: No significant central canal or neuroforaminal stenosis is identified. The paraspinous tissues are unremarkable. IMPRESSION: 1. Generalized cervical spondylosis with mild multilevel neuroforaminal narrowing described level by level above. No significant central canal stenosis is identified. Dictated by: Dictated on workstation # [id number]
--- NOTE | 2018-01-01 19:26 | Diagnostic Imaging Report ---
INDICATION: Routine screening. The current study was also evaluated with a Computer Aided Detection (CAD) system. Comparison is made with prior exams from 09/12/2016 and 09/09/2014. FINDINGS: Scattered fibroglandular densities are identified laterally. There are postsurgical changes in the upper aspect of the left breast, stable. There are benign calcifications bilaterally. No new mass or malignant-appearing microcalcifications are seen. IMPRESSION: No mammographic features suspicious for malignancy are identified. ACR BI-RADS Category 2: Benign findings. Result letter will be mailed to the patient. Note: At least 10% of breast cancer is not imaged by mammography. Dictated by: Dictated on workstation # [id number]
== END ==
LOC: RAD 10:07
PROVIDERS: ATTEND Internal Medicine
DX: Z12.31 Encounter for screening mammogram for malignant neoplasm of breast (principal); M48.02 Spinal stenosis, cervical region; M47.22 Other spondylosis with radiculopathy, cervical region
CPT/HCPCS: 72141; 77067

== ENCOUNTER → 2019-09-25 | Outpatient (CLI) | payer MEDICARE, OTHER ==
--- NOTE | 2019-09-25 14:27 | Diagnostic Imaging Report ---
INDICATION: Routine screening. Correlation is made with prior mammogram 01/01/2018 and 09/12/2016. 2-D and 3-D bilateral screening mammography was performed with CAD. Scattered fibroglandular densities are identified bilaterally. Post-therapeutic changes in the left breast are again noted with benign calcifications present. No new mass or malignant appearing microcalcifications are seen. Axillae are unremarkable. IMPRESSION: BI-RADS Category 2 No mammographic features suspicious for malignancy are identified. ACR BI-RADS Category 2: Benign findings. Result letter will be mailed to the patient. Note: At least 10% of breast cancer is not imaged by mammography. Dictated by: Dictated on workstation # [id number]
== END ==
LOC: RAD 11:06
PROVIDERS: ATTEND Physician Assistant
DX: Z12.31 Encounter for screening mammogram for malignant neoplasm of breast (principal)
CPT/HCPCS: 77067

== ENCOUNTER → 2020-03-02 | Outpatient (CLI) | payer MEDICARE, OTHER ==
[~2020-03-02] MED LIST changes: +LISI1TAB29 PO; -LISI1TAB6 PO
--- NOTE | 2020-03-02 10:08 | Diagnostic Imaging Report ---
PROCEDURE: Ultrasound abdomen complete. TECHNIQUE: Multiple real-time grayscale images were obtained of the abdomen in various projections. INDICATION: Left abdominal pain. COMPARISON: CT from 07/16/2012 FINDINGS: Imaged portions of the pancreas are unremarkable. The body and tail are not well seen due to bowel gas. The liver echogenicity appears normal and the liver appears normal in size. There is no biliary dilatation seen. No focal hepatic lesions are identified. Imaged portions of the IVC and aorta are unremarkable. The main portal vein is hepatopetal. The gallbladder demonstrates no wall thickening or shadowing stones. The right kidney measures 10.4 cm in length. No hydronephrosis or shadowing calculi are seen. No free fluid is seen. The left kidney measures 10.6 cm in length and also demonstrates no hydronephrosis or shadowing calculi. The spleen is normal in size. Sonographic Thrasher sign is negative. IMPRESSION: 1. Unremarkable ultrasound of the abdomen. Dictated by: Dictated on workstation # [id number]
== END ==
LOC: RAD 08:39
PROVIDERS: ATTEND Nurse Practitioner
DX: R10.9 Unspecified abdominal pain (principal)
CPT/HCPCS: 76700

== ENCOUNTER → 2021-02-28 | Outpatient (CLI) | payer MEDICARE, OTHER ==
--- NOTE | 2021-02-28 15:32 | Diagnostic Imaging Report ---
INDICATION: Routine screening. COMPARISON: 09/25/2019 and 01/01/2018. TECHNIQUE: 2D and 3D bilateral screening mammography was performed with CAD. FINDINGS: Scattered fibroglandular densities are identified bilaterally. Post therapeutic changes in the left breast are noted. There are benign calcifications present. No mass or malignant appearing microcalcifications are seen. Surgical clips in the left axilla are noted. IMPRESSION: No mammographic features suspicious for malignancy are identified. ACR BI-RADS Category 2: Benign findings. Result letter will be mailed to the patient. Note: At least 10% of breast cancer is not imaged by mammography. Dictated by: Dictated on workstation # [id number]
== END ==
LOC: RAD 14:30
PROVIDERS: ATTEND Internal Medicine
DX: Z12.31 Encounter for screening mammogram for malignant neoplasm of breast (principal)
CPT/HCPCS: 77063; 77067

== ENCOUNTER 2022-04-24 05:34 | Outpatient (CLI) | payer MEDICARE, OTHER ==
[~2022-04-24] VITALS: Ht 165.1 cm; Wt 74.8 kg
[~2022-04-24 05:34] MED LIST changes: -LISI1TAB29 PO; +LISI1TAB44 PO
== END 2022-04-24 10:25 | disposition home or self-care (01) ==
LOC: PREOP 05:34
PROVIDERS: ATTEND Surgery
DX: Z01.818 Encounter for other preprocedural examination (principal)

== ENCOUNTER 2022-05-02 07:29 | Day surgery (SDC) | payer MEDICARE, OTHER ==
[~2022-05-02] VITALS: Ht 165 cm; Wt 74.8 kg
[2022-05-02] MEDS ORDERED: LACTATED RINGERS 1,000 ML IV STA (07:34)
--- NOTE | 2022-05-02 07:48 | Progress Note-Pre Operative ---
Pre-Operative Progress Note H&P Reviewed The H&P was reviewed, patient examined and no changes noted. Date Seen by Provider: May 02, 2022 Time Seen by Provider: 07:48 Date H&P Reviewed: May 02, 2022 Time H&P Reviewed: 07:48 Pre-Operative Diagnosis: altered bowel function, diarrhea EVELINE CLEMENS DO May 02, 2022 07:48
[2022-05-02 07:49] VITALS: BP 135/69
[2022-05-02] MEDS ORDERED: PROPOFOL INJECTION 50 ML IV ONE (08:27)
--- NOTE | 2022-05-02 08:52 | Anesthesia-General Post-Op ---
MAC Patient Condition Mental Status/LOC: Same as Preop Cardiovascular: Satisfactory Nausea/Vomiting: Absent Respiratory: Satisfactory Pain: Controlled Complications: Absent Post Op Complications Complications None Follow Up Care/Instructions Patient Instructions None needed. Anesthesiology Discharge Order Discharge Order Patient is doing well, no complaints, stable vital signs, no apparent adverse anesthesia problems. No complications reported per nursing. EITAN TRINIDAD CRNA May 02, 2022 08:52
--- NOTE | 2022-05-02 08:53 | Progress Note-Post Operative ---
Post-Operative Progess Note Surgeon (s)/Survey Technologist (s) Surgeon EVELINE CLEMENS DO Survey Technologist: na Pre-Operative Diagnosis altered bowel function, diarrhea Post-Operative Diagnosis diverticulosis Procedure & Operative Findings Date of Procedure 05/02/22 Procedure Performed/Findings colonoscopy with random cold biopsies Anesthesia Type per chief quality officer Estimated Blood Loss Estimated blood loss (mL): none Specimens/Packing Specimens Removed random cold biopsies EVELINE CLEMENS DO May 02, 2022 08:53
--- NOTE | 2022-05-02 08:54 | Discharge Inst-Simple/Standard ---
Discharge Inst-Standard Patient Instructions/Follow Up Plan of Care/Instructions/FU: 2 weeks Anahi Activity as Tolerated: Yes Discharge Diet: Regular Diet (high fiber) EVELINE CLEMENS DO May 02, 2022 08:54
[2022-05-02 08:55] VITALS: BP 137/60
[2022-05-02 09:15] VITALS: BP 134/66
--- NOTE | 2022-05-02 13:31 | OPERATIVE REPORT ---
DATE OF SERVICE: 05/02/2022 PREOPERATIVE DIAGNOSES: Altered bowel function and diarrhea. POSTOPERATIVE DIAGNOSIS: Diverticulosis. PROCEDURES PERFORMED: Colonoscopy with random cold biopsies. SURGEON: Eveline Christian DO ANESTHESIA: Per DRY MIXER. ESTIMATED BLOOD LOSS: None. COMPLICATIONS: None. INDICATIONS FOR PROCEDURE: The patient is a 72-year-old female with altered bowel function and occasional diarrhea. She understands the risks and benefits of the procedure and wishes to proceed. Consent was signed in the chart. DESCRIPTION OF PROCEDURE: The patient was taken to the endoscopy suite and placed in the left lateral recumbent position. Timeout was performed. Digital rectal exam was performed. No palpable polyps, masses or ulcerations. Scope was inserted in the rectum and advanced all the way to cecum with minimal difficulty. Prep was adequate. Scope was slowly retracted back. No polyps, masses or ulcerations within the cecum, ascending, transverse, descending and sigmoid colon. Once in the rectum, scope was retroflexed noting no other pathology. Scope was returned to its normal position until completely removed. As scope was being withdrawn, random cold biopsies were obtained. RECOMMENDATIONS: The patient to follow up in the office in two weeks to discuss pathology results. We would recommend high fiber diet due to diverticulosis. There was a very minimal amount of diverticulosis in the sigmoid colon. Job ID: [id number] DocumentID: [id number] Dictated Date: 05/02/2022 08:56:04 Oncology Transplant Network Manager Date: 05/02/2022 13:29:52 Dictated By: EVELINE CHRISTIAN DO
== END 2022-05-02 09:25 | disposition home or self-care (01) ==
LOC: ENDO 07:29
PROVIDERS: ATTEND Surgery
DX: K57.30 Diverticulosis of large intestine without perforation or abscess without bleeding (principal); K52.9 Noninfective gastroenteritis and colitis, unspecified; Z86.010 Personal history of colon polyps; Z85.3 Personal history of malignant neoplasm of breast

== ENCOUNTER → 2023-06-28 | Outpatient (CLI) | payer MEDICARE, OTHER ==
--- NOTE | 2023-06-28 20:22 | Diagnostic Imaging Report ---
INDICATION: Routine screening. COMPARISON: Prior mammograms from 02/28/2021 and 09/25/2019. EXAMINATION: 2D and 3D bilateral screening mammography was performed with CAD. The current study was also evaluated with a Computer Aided Detection (CAD) system. FINDINGS: Both breasts are heterogeneously dense, limiting the sensitivity of mammography. Post-therapeutic changes in the left breast appear stable. No mass or malignant-appearing microcalcifications are seen. There are benign calcifications noted. The axillae are unremarkable. IMPRESSION: No mammographic features suspicious for malignancy are identified. ACR BI-RADS Category 2: Benign findings. Result letter will be mailed to the patient. Note: At least 10% of breast cancer is not imaged by mammography. Dictated by: Dictated on workstation # [id number]
== END ==
LOC: RAD 14:37
PROVIDERS: ATTEND Internal Medicine
DX: Z12.31 Encounter for screening mammogram for malignant neoplasm of breast (principal)
CPT/HCPCS: 77063; 77067